=== PATIENT | female | born 1940 | race Caucasian/White ===

== ENCOUNTER 2018-02-16 04:14 | Emergency (ER) | payer MEDICARE, OTHER ==
[2018-02-16 04:36] VITALS: BP 170/72
--- NOTE | 2018-02-16 04:58 | EDM.PDOC ---
ED HPI GENERAL MEDICAL PROBLEM - General Chief Complaint: Lower Extremity Injury/Pain Stated Complaint: PAIN IN RIGHT LEG Time Seen by Provider: 02/16/18 04:56 Source of Information: Reports: Patient History Limitations: Reports: No Limitations - History of Present Illness INITIAL COMMENTS - FREE TEXT/NARRATIVE: This lady is here because she is a diabetic and her this morning she started having some shooting burning pain in the lateral side of right calf she called one of the nurses help lines and the nurse there told her that she better get to the emergency room right away because she might have a blood clot. Patient says his pain comes and goes when it comes it's sharp stabbing and goes away just as fast she does have peripheral neuropathy from diabetes - Related Data Allergies Allergy/AdvReac Type Severity Reaction Status Date / Time amoxicillin [Amoxicillin] Allergy Hives Verified 02/16/18 04:31 Home Meds: Home Meds Levothyroxine Sodium [Synthroid] 100 mcg PO ACBREAKFAST 02/01/15 [History] Lisinopril [Prinivil] 10 mg PO DAILY 02/01/15 [History] Simvastatin [Zocor] 40 mg PO BEDTIME 02/01/15 [History] metFORMIN [Glucophage] 500 mg PO BID 02/01/15 [History] Past Medical History Cardiovascular History: Reports: High Cholesterol, Hypertension 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: , 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 Musculoskeletal History: Reports: Arthritis, Fibromyalgia Neurological History: Reports: Neuropathy, Diabetic Endocrine/Metabolic History: Reports: Diabetes, Type II, Hypothyroidism, Vitamin D Deficiency - Past Surgical History HEENT Surgical History: Reports: Other (See Below) Other HEENT Surgeries/Procedures: nasal surgery GI Surgical History: Reports: Appendectomy, Cholecystectomy Musculoskeletal Surgical History: Reports: Shoulder Surgery Social & Family History - Tobacco Use Smoking Status *Q: Never Smoker Second Hand Smoke Exposure: No - Caffeine Use Caffeine Use: Reports: Coffee - Alcohol Use Days Per Week of Alcohol Use: 0 - Recreational Drug Use Recreational Drug Use: No Review of Systems - Review of Systems Review Of Systems: ROS reveals no pertinent complaints other than HPI. ED EXAM, GENERAL - Physical Exam Exam: See Below Exam Limited By: No Limitations General Appearance: Alert, WD/WN, No Apparent Distress Extremities: Other (The right calf is completely normal area there is no swelling erythema there is no mass no rashes and is completely nontender.) Neurological: Alert, Oriented, Other (Some decreased sensation in the lower legs and feet) Skin Exam: Warm, Dry, Intact Course - Vital Signs Last Recorded V/S: Last Vital Signs Temp 35.4 C 02/16/18 04:35 Pulse 55 L 02/16/18 04:35 Resp 18 02/16/18 04:35 BP 170/72 H 02/16/18 04:35 Pulse Ox 96 02/16/18 04:35 Departure - Departure Time of Disposition: 04:56 Disposition: Home, Self-Care 01 Condition: Fair Clinical Impression: Peripheral neuropathy due to metabolic disorder - Discharge Information Instructions: Peripheral Neuropathy Referrals: Camille Be MD [Primary Care Provider] - Forms: ED Department Discharge Additional Instructions: The shooting stabbing pains in your legs are typical of the peripheral neuropathy that is common in people with diabetes. Definitely you do not have a blood clot.
== END 2018-02-16 05:00 | disposition home or self-care (01) ==
LOC: JP.ED 04:14
DX: E11.42 Type 2 diabetes mellitus with diabetic polyneuropathy (principal); E88.9 Metabolic disorder, unspecified; E78.00 Pure hypercholesterolemia, unspecified; E03.9 Hypothyroidism, unspecified; Z88.1 Allergy status to other antibiotic agents; Z79.899 Other long term (current) drug therapy; Z79.84 Long term (current) use of oral hypoglycemic drugs
CPT/HCPCS: 99283

== ENCOUNTER 2020-05-13 15:43 | Emergency (ER) | payer MEDICARE, OTHER ==
[2020-05-13] MEDS ORDERED: Aspirin 81 MG Tab.Chew PO ONE (15:51)
[2020-05-13] MEDS ORDERED: Sodium Chloride 0.9% 10 ML Syringe FLUSH PRN (15:51)
--- NOTE | 2020-05-13 16:06 | EDM.PDOC ---
ED HPI GENERAL MEDICAL PROBLEM - General Chief Complaint: Chest Pain Stated Complaint: CHEST PAIN Time Seen by Provider: 05/13/20 16:00 Source of Information: Reports: Patient, Family - History of Present Illness INITIAL COMMENTS - FREE TEXT/NARRATIVE: 79 year old female presents to [facility] for chest pressure which patient has had intermittently since Friday. 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 Patient noted slight shortness of breath with chest pressure which does not radiate to left shoulder or jaw. Patient denies nausea, lightheadedness and sweating with chest pressure symptoms. Patient was evaluated by her PCP for the same symptoms on Friday which have occurred nearly every day with slight physical exertion. Patient believes she has angina and wondering if she would benefit from nitroglycerin as needed. Patient declined Nitroglycerin during ER visit, as symptoms only occur with activity. - Related Data Allergies Allergy/AdvReac Type Severity Reaction Status Date / Time amoxicillin [Amoxicillin] Allergy Hives Verified 05/13/20 15:44 Home Meds: Home Meds Levothyroxine Sodium [Synthroid] 100 mcg PO ACBREAKFAST 02/01/15 [History] Simvastatin [Zocor] 40 mg PO BEDTIME 02/01/15 [History] lisinopriL [Prinivil] 2.5 mg PO DAILY 02/01/15 [History] metFORMIN [Glucophage] 500 mg PO BID 02/01/15 [History] Aspirin [Adult Low Dose Aspirin EC] 81 mg PO DAILY 05/10/20 [History] Cholecalciferol (Vitamin D3) [Vitamin D3] 25 mcg PO DAILY 05/10/20 [History] Gabapentin [Neurontin] 300 mg PO BEDTIME 05/10/20 [History] Multivitamin [Multivitamins] 1 tab PO DAILY 05/10/20 [History] Isosorbide Mononitrate [Imdur] 30 mg PO DAILY 30 Days #30 tab.er 05/13/20 [Rx] Past Medical History Cardiovascular History: Reports: High Cholesterol, Hypertension 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: , 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 Musculoskeletal History: Reports: Arthritis, Fibromyalgia Neurological History: Reports: Neuropathy, Diabetic Endocrine/Metabolic History: Reports: Diabetes, Type II, Hypothyroidism, Vitamin D Deficiency - Past Surgical History HEENT Surgical History: Reports: Other (See Below) Other HEENT Surgeries/Procedures: nasal surgery GI Surgical History: Reports: Appendectomy, Cholecystectomy Musculoskeletal Surgical History: Reports: Shoulder Surgery Social & Family History - Tobacco Use Smoking Status *Q: Never Smoker - Caffeine Use Caffeine Use: Reports: Coffee ED ROS GENERAL - Review of Systems Review Of Systems: Comprehensive ROS is negative, except as noted in HPI. ED EXAM, GENERAL - Physical Exam Exam: See Below Exam Limited By: No Limitations General Appearance: Alert, WD/WN, No Apparent Distress Ears: Normal External Exam, Hearing Grossly Normal Nose: Normal Inspection Throat/Mouth: Normal Inspection, Normal Voice, No Airway Compromise Neck: Normal Inspection, Full Range of Motion Respiratory/Chest: No Respiratory Distress, Lungs Clear, Normal Breath Sounds, Chest Non-Tender Cardiovascular: Regular Rate, Rhythm, Systolic Murmur (soft questionable) GI/Abdominal: Normal Bowel Sounds, Soft, Tender (diffuse not focal which is normal per patient) (Female) Exam: Deferred Rectal (Female) Exam: Deferred Back Exam: No: CVA Tenderness (R), CVA Tenderness (L) Neurological: Alert, Oriented Psychiatric: Normal Affect, Normal Mood Skin Exam: Warm, Dry, Intact, Normal Color, No Rash EKG INTERPRETATION EKG Date: 05/13/20 Time: 15:39 Rhythm: NSR [place]: Normal P-Wave: Present QRS: RBBB ST-T: Other (non specific) QT: Prolonged (476 QTc 484) Comparison: No Change (from 2014) Course - Vital Signs Last Recorded V/S: Last Vital Signs Temp 36.2 C 05/13/20 15:49 Pulse 50 L 05/13/20 17:24 Resp 17 05/13/20 17:24 BP 159/72 H 05/13/20 17:24 Pulse Ox 98 05/13/20 17:24 - Orders/Labs/Meds Orders: Active Orders 24 hr Category Date Time Status Cardiac Monitoring [RC] .As Directed Care 05/13/20 15:51 Active EKG Documentation Completion [RC] ASDIRECTED Care 05/13/20 15:52 Active Peripheral IV Care [RC] . DIRECTED Care 05/13/20 15:52 Active Chest 1V Frontal [CR] Stat Exams 05/13/20 15:52 Taken Nitroglycerin [Nitrostat] Med 05/13/20 16:17 Active 0.4 mg SL Q5M PRN Sodium Chloride 0.9% [Saline Flush] Med 05/13/20 15:51 Active 10 ml FLUSH ASDIRECTED PRN Peripheral IV Insertion Adult [OM.PC] Stat Oth 05/13/20 15:51 Ordered EKG 12 Lead [EK] Stat Ther 05/13/20 15:52 Ordered Medication Orders Nitroglycerin (Nitrostat) 0.4 mg SL Q5M PRN PRN Reason: Chest Pain Sodium Chloride (Saline Flush) 10 ml FLUSH ASDIRECTED PRN PRN Reason: Keep Vein Open Last Admin: 05/13/20 16:03 Dose: 10 ml Documented by: AILEEN Labs: Laboratory Tests 05/13/20 05/13/20 Range/Units 15:56 15:56 WBC 5.2 (4.5-11.0) K/uL RBC 4.21 (3.30-5.50) M/uL Hgb 12.1 (12.0-15.0) g/dL Hct 37.8 (36.0-48.0) % MCV 90 (80-98) fL MCH 29 (27-31) pg MCHC 32 (32-36) % Plt Count 284 (150-400) K/uL Neut % (Auto) 57 (36-66) % Lymph % (Auto) 32 (24-44) % [place] % (Auto) 9 H (2-6) % Eos % (Auto) 1 L (2-4) % Baso % (Auto) 0 (0-1) % Sodium 138 L (140-148) mmol/L Potassium 3.7 (3.6-5.2) mmol/L Chloride 102 (100-108) mmol/L Carbon Dioxide 26 (21-32) mmol/L Anion Gap 13.7 (5.0-14.0) mmol/L BUN 18 (7-18) mg/dL Creatinine 1.0 (0.6-1.0) mg/dL Est Cr Clr Drug Dosing 42.39 mL/min Estimated GFR (MDRD) 54 L (>60) Glucose 204 H (74-106) mg/dL Calcium 8.5 (8.5-10.1) mg/dL Total Bilirubin 0.2 (0.2-1.0) mg/dL AST 17 (15-37) U/L ALT 23 (12-78) U/L Alkaline Phosphatase 65 (46-116) U/L Troponin I < 0.017 (0.000-0.056) ng/mL Total Protein 6.7 (6.4-8.2) g/dL Albumin 3.8 (3.4-5.0) g/dL Globulin 2.9 (2.3-3.5) g/dL Albumin/Globulin Ratio 1.3 (1.2-2.2) Meds: Medications Generic Name Dose Route Start Last Admin Trade Name Freq PRN Reason Stop Dose Admin Nitroglycerin 0.4 mg 05/13/20 16:17 Nitrostat SL Q5M PRN Chest Pain Sodium Chloride 10 ml 05/13/20 15:51 05/13/20 16:03 Saline Flush FLUSH 10 ml ASDIRECTED PRN Administration Keep Vein Open Discontinued Medications Generic Name Dose Route Start Last Admin Trade Name Freq PRN Reason Stop Dose Admin Aspirin 324 mg 05/13/20 15:51 05/13/20 16:12 Aspirin PO 05/13/20 15:52 324 mg ONETIME ONE Administration - Radiology Interpretation Free Text/Narrative:: CXR PA: NO acute cardiopulmonary findings. Images read by me during ER visit. Radiology report pending. - Re-Assessments/Exams Free Text/Narrative Re-Assessment/Exam: Chart review completed during ER visit: Patient had a out patient Cardiac Stress Test with Lexiscan, Impression: Unre markable Lexiscan portion of the Lexiscan Myoview study. Interpretation of the Myoview portion of the study is pending at this time. Patient has similar symptoms in 2014 which results in Cardiac Angiography which the patient believes was normal, study was competed in [facility]. Myocardial Perfusion Scan Report available during patient ER visit: IMPRESSION: 1. No evidence of significant myocardia ischemia or infarction. 2. Normal left ventricular ejection fraction of 76 percent. Reassessment: EKG and Troponin are normal with history of normal Lexiscan and Myocardial Perfusion Scan this week decreases likelihood for significant cardiac cause to explain patient's symptoms. Patient was offered Nitro SL but declined as symptoms only occur with activity. No pain during ER visit. Remainder of blood test do not show obvious cause for patient's symptoms of chest pain today. CXR shows not signs of pulmonary concerns to explain symptoms. 05/13/20 17:27 Departure - Departure Time of Disposition: 17:42 Disposition: Home, Self-Care 01 Clinical Impression: Angina of effort Prescriptions: Isosorbide Mononitrate [Imdur] 30 mg PO DAILY 30 Days #30 tab.er Instructions: Nonspecific Chest Pain, Adult, [id number], Angina Referrals: PCP,None [Primary Care Provider] - Forms: ED Department Discharge Additional Instructions: 1. Imdur 30mg once daily for prevention of stable angina. 2. Stable angina is chest pressure with activity which resolves at rest, which should decrease or stop with this medication. 3. If however, you have chest pressure and pain that worsens or does not improve at rest repeat ER evaluation would be recommended. 4. Call you PCP about ER visit and plan to initiate Imdur for the prevention of your angina which is preventing you for enjoying the activities of daily living. Sepsis Event Note (ED) - Evaluation Sepsis Screening Result: No Definite Risk - Focused Exam Vital Signs: Vital Signs Temp Pulse Resp BP Pulse Ox 05/13/20 17:24 50 L 17 159/72 H 98 05/13/20 17:10 52 L 165/71 H 05/13/20 16:31 54 L 17 149/69 H 97 05/13/20 16:02 53 L 13 157/66 H 99 05/13/20 15:49 36.2 C 58 L 18 168/69 H 96 - My Orders Last 24 Hours: My Active Orders 05/13/20 15:51 Cardiac Monitoring [RC] .As Directed Sodium Chloride 0.9% [Saline Flush] 10 ml FLUSH ASDIRECTED PRN Peripheral IV Insertion Adult [OM.PC] Stat 05/13/20 15:52 EKG Documentation Completion [RC] ASDIRECTED Peripheral IV Care [RC] . DIRECTED Chest 1V Frontal [CR] Stat EKG 12 Lead [EK] Stat 05/13/20 16:17 Nitroglycerin [Nitrostat] 0.4 mg SL Q5M PRN - Assessment/Plan Last 24 Hours: My Active Orders 05/13/20 15:51 Cardiac Monitoring [RC] .As Directed Sodium Chloride 0.9% [Saline Flush] 10 ml FLUSH ASDIRECTED PRN Peripheral IV Insertion Adult [OM.PC] Stat 05/13/20 15:52 EKG Documentation Completion [RC] ASDIRECTED Peripheral IV Care [RC] . DIRECTED Chest 1V Frontal [CR] Stat EKG 12 Lead [EK] Stat 05/13/20 16:17 Nitroglycerin [Nitrostat] 0.4 mg SL Q5M PRN
[2020-05-13] MEDS ORDERED: Nitroglycerin 0.4 MG Tab.SL SL PRN (16:17)
[2020-05-13 17:25] VITALS: BP 159/72; PULSE 50
--- NOTE | 2020-05-15 10:32 | CR ---
CHEST: Portable 05/13/2020 at 4:13 PM CLINICAL HISTORY:Chest pain COMPARISON:2014 FINDINGS: The heart size, pulmonary vascularity and hilar structures are normal. No infiltrate effusion or pneumothorax is seen. There are atherosclerotic changes in the aorta. There is severe degenerative change left shoulder IMPRESSION: No acute cardiopulmonary process.
== END 2020-05-13 17:56 | disposition home or self-care (01) ==
LOC: JP.ED 15:43
DX: I20.8 Other forms of angina pectoris (principal); E78.00 Pure hypercholesterolemia, unspecified; I10 Essential (primary) hypertension; E11.40 Type 2 diabetes mellitus with diabetic neuropathy, unspecified; E03.9 Hypothyroidism, unspecified; Z88.0 Allergy status to penicillin; Z79.899 Other long term (current) drug therapy; Z79.84 Long term (current) use of oral hypoglycemic drugs; Z79.82 Long term (current) use of aspirin
CPT/HCPCS: 36415; 71045; 80053; 84484; 85025; 93005; 99285; A9270

== ENCOUNTER 2020-07-14 22:29 | Emergency (ER) | payer MEDICARE, OTHER ==
[2020-07-14 22:38] VITALS: BP 131/87; PULSE 54
--- NOTE | 2020-07-14 23:46 | EDM.PDOC ---
ED HPI GENERAL MEDICAL PROBLEM - General Chief Complaint: Chest Pain Stated Complaint: CHEST TIGHTNESS Time Seen by Provider: 07/14/20 22:55 Source of Information: Reports: Patient, Family History Limitations: Reports: No Limitations - History of Present Illness INITIAL COMMENTS - FREE TEXT/NARRATIVE: Patient presents tonight describing vague chest tightness feelings beginning approximately 2100 hrs. She has been diagnosed with angina and takes isosorbide on a daily basis. She underwent a Radha scan stress test, echocardiogram, ambulatory telemetry monitoring and cardiology follow-up, most recently with Dr. Burgos on Friday here in [place]. He said that all tests looked good and recommended that she continue isosorbide for maintenance of her angina symptoms. 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 She had absolutely no chest tightness, heaviness, shortness of breath, dizziness during any of that work. She carried a number of boxes of potatoes down to their basement after digging them out of the ground and similarly had no difficulty with secondary symptoms. Later while preparing a meal and then taking it easy, she noticed tightness in her neck, left shoulder, chest and felt as though she could not catch her breath. She does have anxiety and contemplated taking 1 of her anxiety medications but instead decided that she needed to come in and be seen here. Her symptoms were essentially gone when she arrived. She noticed extra heartbeats and was concerned that that represented some type of heart attack. She had no nausea, no diaphoresis. At this time, she feels like her usual self. Onset: Today Duration: Hour(s): (1) Location: Reports: Neck, Chest Quality: Reports: Other (Fluttering in chest.) Severity: Mild Improves with: Reports: None Worsens with: Reports: None Associated Symptoms: Reports: Shortness of Breath Chest Pain Score (Numeric/FACES): 6 - Related Data Allergies Allergy/AdvReac Type Severity Reaction Status Date / Time amoxicillin [Amoxicillin] Allergy Hives Verified 07/14/20 22:36 Home Meds: Home Meds Levothyroxine Sodium [Synthroid] 100 mcg PO ACBREAKFAST 02/01/15 [History] Simvastatin [Zocor] 40 mg PO BEDTIME 02/01/15 [History] lisinopriL [Prinivil] 2.5 mg PO DAILY 02/01/15 [History] metFORMIN [Glucophage] 500 mg PO BID 02/01/15 [History] Aspirin [Adult Low Dose Aspirin EC] 81 mg PO DAILY 05/10/20 [History] Cholecalciferol (Vitamin D3) [Vitamin D3] 25 mcg PO DAILY 05/10/20 [History] Multivitamin [Multivitamins] 1 tab PO DAILY 05/10/20 [History] Isosorbide Mononitrate [Imdur] 30 mg PO DAILY 30 Days #30 tab.er 05/13/20 [Rx] Past Medical History HEENT History: Reports: Cataract, Glaucoma, Impaired Vision, Other (See Below) Other HEENT History: 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 Cardiovascular History: Reports: Angina, Heart Murmur, High Cholesterol, Hypertension Genitourinary History: Reports: Other (See Below) Other Genitourinary History: prolapsed bladder 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: , 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 Musculoskeletal History: Reports: Arthritis, Fracture, Fibromyalgia Neurological History: Reports: Neuropathy, Diabetic Psychiatric History: Reports: Anxiety Endocrine/Metabolic History: Reports: Diabetes, Type II, Hypothyroidism, Vitamin D Deficiency Dermatologic History: Reports: Other (See Below) Other Dermatologic History: lichen sclerosis et atoprotis - Infectious Disease History Infectious Disease History: Reports: Chicken Pox - Past Surgical History HEENT Surgical History: Reports: Other (See Below) Other HEENT Surgeries/Procedures: nasal surgery GI Surgical History: Reports: Appendectomy, Cholecystectomy, Colonoscopy Musculoskeletal Surgical History: Reports: Shoulder Surgery Social & Family History - Tobacco Use Smoking Status *Q: Never Smoker - Caffeine Use Caffeine Use: Reports: Coffee ED ROS GENERAL - Review of Systems Review Of Systems: See Below Constitutional: Reports: Fatigue (She is tired but also worked many hours today doing heavy manual labor.) HEENT: Reports: No Symptoms Respiratory: Reports: Shortness of Breath (It is difficult for her to quantify her shortness of breath feelings. She does not have a history of reactive airway disease.) Cardiovascular: Reports: Chest Pain, Palpitations Endocrine: Reports: No Symptoms GI/Abdominal: Reports: No Symptoms Musculoskeletal: Reports: Neck Pain, Shoulder Pain (Left shoulder) Neurological: Reports: No Symptoms ED EXAM, GENERAL - Physical Exam Exam: See Below Free Text/Narrative:: This is an adult female interviewed in room 3. She is accompanied by her . 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 Exam Limited By: No Limitations General Appearance: No Apparent Distress, Anxious Head: Atraumatic Neck: Supple Respiratory/Chest: No Respiratory Distress, Lungs Clear Cardiovascular: Regular Rate, Rhythm, Extra Beats (Rare occurrences) Peripheral Pulses: 4+: Carotid (L), Carotid (R) GI/Abdominal: Soft, Non-Tender Psychiatric: Anxious EKG INTERPRETATION EKG Date: 07/14/20 Time: 22:42 Rhythm: NSR Rate (Beats/Min): 55 [place]: Normal P-Wave: Present QRS: RBBB ST-T: Normal QT: Normal Course - Vital Signs Last Recorded V/S: Last Vital Signs Temp 35.9 C L 07/14/20 22:50 Pulse 54 L 07/14/20 22:50 Resp 10 L 07/14/20 22:50 BP 131/87 07/14/20 22:50 Pulse Ox 100 07/14/20 22:50 - Orders/Labs/Meds Orders: Active Orders 24 hr Category Date Time Status EKG Documentation Completion [RC] ASDIRECTED Care 07/14/20 23:48 Ordered EKG 12 Lead [EK] Routine Ther 07/14/20 23:48 Ordered - Re-Assessments/Exams Free Text/Narrative Re-Assessment/Exam: 07/15/20 00:00 We reviewed her recent extensive cardiac work-up and its results. At this time, she feels fine and thinks that the episode tonight was more anxiety. Both her and daughter were diagnosed with cancer 2 months ago and that has been on her mind as well. It told her that I felt all of her outside work today was in essence a personal self conducted cardiac stress test. She had no palpitations, chest pain, breathing difficulty while doing those things. It was only later when she had time to rest and contemplate symptoms that she works. The way she describes her breathing, I think she was not exhaling completely and yet it felt as though she could not take a breath in. We discussed that there is no sudden onset way that would keep her from being able to breathe in. Her EKG looks fine and here she has no secondary symptoms. I recommend continuing her current medication and care plans. If she decides to take her anxiety medication she should remember that it will take 30 minutes or so to be completely effective. If she feels as though she cannot breathe, she should make sure she exhales completely. If she has chest heaviness suggestive of anginal, she should return here or to the nearest emergency department. Her symptoms tonight did not sound like angina. She was discharged in reassured condition. Departure - Departure Time of Disposition: 23:43 Disposition: Home, Self-Care 01 Clinical Impression: Palpitations, Atypical chest pain, Anxiety Instructions: Nonspecific Chest Pain, Adult, [id number], Palpitations, [id number], Living With Anxiety Referrals: PCP,None [Primary Care Provider] - Forms: ED Department Discharge Additional Instructions: Continue current medications including isosorbide and your anxiety medicine. The fact that you were able to work hard all day and not have chest discomfort is a positive sign. If you feel as though you are are not able to breathe properly, remember our discussion about breathing out completely before attempting to take of breath and again. It is normal for people to have extra heartbeats especially as we get older. If you notice those, it does not mean that something bad is about to happen. If you use your anxiety medication remember that it will take 30 minutes to begin to be effective. If feeling worse in any way, return to ER. Sepsis Event Note (ED) - Evaluation Sepsis Screening Result: No Definite Risk - Focused Exam Vital Signs: Vital Signs Temp Pulse Resp BP Pulse Ox 07/14/20 22:50 35.9 C L 54 L 10 L 131/87 100 07/14/20 22:37 35.9 C L 54 L 10 L 131/87 100 - My Orders Last 24 Hours: My Active Orders 07/14/20 23:48 EKG Documentation Completion [RC] ASDIRECTED EKG 12 Lead [EK] Routine - Assessment/Plan Last 24 Hours: My Active Orders 07/14/20 23:48 EKG Documentation Completion [RC] ASDIRECTED EKG 12 Lead [EK] Routine
== END 2020-07-14 23:54 | disposition home or self-care (01) ==
LOC: JP.ED 22:29
DX: R07.89 Other chest pain (principal); F41.9 Anxiety disorder, unspecified; I10 Essential (primary) hypertension; M19.90 Unspecified osteoarthritis, unspecified site; E11.40 Type 2 diabetes mellitus with diabetic neuropathy, unspecified; I45.10 Unspecified right bundle-branch block; Z88.1 Allergy status to other antibiotic agents; Z79.82 Long term (current) use of aspirin; Z79.899 Other long term (current) drug therapy; Z79.84 Long term (current) use of oral hypoglycemic drugs
CPT/HCPCS: 93005; 93010; 99284-25

== ENCOUNTER 2021-02-11 19:08 | Emergency (ER) | payer MEDICARE, OTHER ==
[2021-02-11 19:22] VITALS: PULSE 57
--- NOTE | 2021-02-11 19:26 | EDM.PDOC ---
ED HPI GENERAL MEDICAL PROBLEM - General Chief Complaint: Respiratory Problem Stated Complaint: DIFFICULTY BREATHING Time Seen by Provider: 02/11/21 19:21 Source of Information: Reports: Patient History Limitations: Reports: No Limitations - History of Present Illness INITIAL COMMENTS - FREE TEXT/NARRATIVE: Winnie is a 80-year-old female presenting to the ED for evaluation of o rthopnea. Patient was in her usual state of health until eating hazelnuts last evening. She thinks that she may have aspirated 1 and since then has had the sensation of either having a scratch in her trachea or a retained foreign body. She states that she becomes increasingly short of breath when reclining and was unable to sleep last night because of the discomfort and shortness of breath. She denies any fever or chills. She has had nasal congestion and rhinorrhea for about the last week but has not taken anything for it. She has had a nonproductive cough since the incident last night. She denies any dyspnea at rest. - Related Data Allergies Allergy/AdvReac Type Severity Reaction Status Date / Time amoxicillin [Amoxicillin] Allergy Hives Verified 02/11/21 19:17 Home Meds: Home Meds Levothyroxine Sodium [Synthroid] 100 mcg PO ACBREAKFAST 02/01/15 [History] Simvastatin [Zocor] 40 mg PO BEDTIME 02/01/15 [History] lisinopriL [Prinivil] 2.5 mg PO DAILY 02/01/15 [History] metFORMIN [Glucophage] 500 mg PO BID 02/01/15 [History] Aspirin [Adult Low Dose Aspirin EC] 81 mg PO DAILY 05/10/20 [History] Cholecalciferol (Vitamin D3) [Vitamin D3] 1,000 mcg PO DAILY 05/10/20 [History] Multivitamin [Multivitamins] 1 tab PO DAILY 05/10/20 [History] Isosorbide Mononitrate [Imdur] 30 mg PO DAILY 30 Days #30 tab.er 05/13/20 [Rx] Past Medical History HEENT History: Reports: Cataract, Glaucoma, Impaired Vision, Other (See Below) Other HEENT History: 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 Cardiovascular History: Reports: Angina, Heart Murmur, High Cholesterol, Hypertension Genitourinary History: Reports: Other (See Below) Other Genitourinary History: prolapsed bladder OFFICE SUPPORT ASSISTANT History: Reports: , Spontaneous Musculoskeletal History: Reports: Arthritis, Fracture, Fibromyalgia Neurological History: Reports: Neuropathy, Diabetic Psychiatric History: Reports: Anxiety Endocrine/Metabolic History: Reports: Diabetes, Type II, Hypothyroidism, Vitamin D Deficiency Dermatologic History: Reports: Other (See Below) Other Dermatologic History: lichen sclerosis et atoprotis - Infectious Disease History Infectious Disease History: Reports: Chicken Pox - Past Surgical History HEENT Surgical History: Reports: Other (See Below) Other HEENT Surgeries/Procedures: nasal surgery GI Surgical History: Reports: Appendectomy, Cholecystectomy, Colonoscopy Musculoskeletal Surgical History: Reports: Shoulder Surgery Social & Family History - Tobacco Use Tobacco Use Status *Q: Never Tobacco User - Caffeine Use Caffeine Use: Reports: Coffee - Recreational Drug Use Recreational Drug Use: No ED ROS GENERAL - Review of Systems Review Of Systems: See Below Constitutional: Reports: No Symptoms HEENT: Reports: Rhinitis Respiratory: Reports: Shortness of Breath, Cough, Other (Orthopnea) Cardiovascular: Reports: Orthopnea Endocrine: Reports: No Symptoms GI/Abdominal: Reports: No Symptoms : Reports: No Symptoms Musculoskeletal: Reports: No Symptoms Skin: Reports: No Symptoms Neurological: Reports: No Symptoms Psychiatric: Reports: No Symptoms Hematologic/Lymphatic: Reports: No Symptoms Immunologic: Reports: No Symptoms ED EXAM, GENERAL - Physical Exam Exam: See Below Exam Limited By: No Limitations General Appearance: Alert, No Apparent Distress Eye Exam: Bilateral Eye: EOMI, PERRL Nose: Nasal Swelling, Nasal Drainage, Clear Rhinorrhea Throat/Mouth: Normal Inspection, Normal Lips, Normal Teeth, Normal Gums, Normal Oropharynx, Normal Voice, No Airway Compromise Head: Atraumatic, Normocephalic Neck: Normal Inspection, Supple, Non-Tender, Full Range of Motion Respiratory/Chest: No Respiratory Distress, Lungs Clear, Normal Breath Sounds. No: Rales, Rhonchi, Wheezing, Stridor Cardiovascular: Normal Peripheral Pulses, Regular Rate, Rhythm, No Murmur Peripheral Pulses: 2+: Radial (L), Radial (R) GI/Abdominal: Normal Bowel Sounds, Soft, Non-Tender Back Exam: Normal Inspection, Full Range of Motion Extremities: Normal Inspection, Normal Range of Motion, No Pedal Edema Neurological: Alert, Oriented, Normal Cognition, No Motor/Sensory Deficits Psychiatric: Normal Affect, Normal Mood Skin Exam: Warm, Dry, Intact, Normal Color Lymphatic: No Adenopathy Course - Vital Signs Last Recorded V/S: Last Vital Signs Temp 36.8 C 02/11/21 19:21 Pulse 57 L 02/11/21 19:21 Resp 18 02/11/21 19:21 BP 171/66 H 02/11/21 19:47 Pulse Ox 97 02/11/21 19:21 - Orders/Labs/Meds Orders: Active Orders 24 hr Category Date Time Status RT Aerosol Therapy [RC] ASDIRECTED Care 02/11/21 20:27 Active Labs: Laboratory Tests 02/11/21 02/11/21 02/11/21 Range/Units 19:33 19:33 19:33 WBC 5.5 (4.5-11.0) K/uL RBC 4.18 (3.30-5.50) M/uL Hgb 12.1 (12.0-15.0) g/dL Hct 37.5 (36.0-48.0) % MCV 90 (80-98) fL MCH 29 (27-31) pg MCHC 32 (32-36) % Plt Count 258 (150-400) K/uL Neut % (Auto) 58 (36-66) % Lymph % (Auto) 28 (24-44) % Cook % (Auto) 12 H (2-6) % Eos % (Auto) 2 (2-4) % Baso % (Auto) 0 (0-1) % Sodium 144 (140-148) mmol/L Potassium 4.1 (3.6-5.2) mmol/L Chloride 105 (100-108) mmol/L Carbon Dioxide 28 (21-32) mmol/L Anion Gap 10.6 (5.0-14.0) mmol/L BUN 19 H (7-18) mg/dL Creatinine 1.1 H (0.6-1.0) mg/dL Est Cr Clr Drug Dosing 37.93 mL/min Estimated GFR (MDRD) 48 L (>60) Glucose 162 H (74-106) mg/dL Calcium 9.3 (8.5-10.1) mg/dL Total Bilirubin 0.2 (0.2-1.0) mg/dL AST 15 (15-37) U/L ALT 20 (12-78) U/L Alkaline Phosphatase 86 (46-116) U/L C-Reactive Protein 0.21 (0.0-0.3) mg/dL NT-Pro-B Natriuret Pep 287 (5-450) pg/mL Total Protein 6.6 (6.4-8.2) g/dL Albumin 3.7 (3.4-5.0) g/dL Globulin 2.9 (2.3-3.5) g/dL Albumin/Globulin Ratio 1.3 (1.2-2.2) Meds: Medications Discontinued Medications Generic Name Dose Route Start Last Admin Trade Name Freq PRN Reason Stop Dose Admin Albuterol/Ipratropium 3 ml 02/11/21 20:27 02/11/21 20:31 Albuterol/Ipratropium 3.0-0.5 Mg/3 Ml Neb Soln NEB 02/11/21 20:28 3 ml ONETIME ONE Administration - Radiology Interpretation Free Text/Narrative:: I reviewed the report on the CT of the chest without contrast. There is no evidence for any endotracheal or endobronchial foreign bodies. There is coronary artery disease and mitral annular calcification noted but otherwise no abnormalities were otherwise discussed. - Re-Assessments/Exams Free Text/Narrative Re-Assessment/Exam: 02/11/21 20:25 reviewed the labs from the patient which are essentially normal. Her BNP is 278. Her CBC and comprehensive metabolic panel are unremarkable. Her CRP is normal. The CT of the chest without contrast failed to demonstrate any acute foreign bodies. We will try a bronchodilator to see if this helps with her orthopnea. This is likely some subjective irritation of the proximal trachea due to the near aspiration. Departure - Departure Time of Disposition: 20:43 Disposition: Home, Self-Care 01 Clinical Impression: Orthopnea, Bronchospasm, Allergic rhinitis due to allergen - Discharge Information Instructions: Bronchospasm, Adult, [id number], Allergic Rhinitis, Adult, [id number] Referrals: Kelly Askew PA-C [Primary Care Provider] - Forms: ED Department Discharge Care Plan Goals: It is likely that your difficulty breathing with lying down is secondary to your seasonal allergies and some bronchospasm due to tracheal irritation. There was no evidence for aspiration of any of the not that she consumed yesterday. Moreover, chronic irritation of the upper airway from postnasal drip may be contributing more to your difficulty breathing with lying down. I would recommend starting one of the [id number] allergy medicines like Claritin, Rosalie, or Zyrtec to help alleviate the postnasal drip. You may also consider using Flonase which is also available [id number] to help reduce the inflammation in the nose. This is likely due to the recent onset of spring with the cruz of [place] tree pollen. I am sending you home with an inhaler of albuterol which will help relax airways and may offer some relief for your difficulty breathing. Follow-up with your primary care provider as needed. Return to the ED should you develop any significant shortness of breath. Sepsis Event Note (ED) - Evaluation Sepsis Screening Result: No Definite Risk - Focused Exam Vital Signs: Vital Signs Temp Pulse Resp BP Pulse Ox 02/11/21 19:47 171/66 H 02/11/21 19:21 36.8 C 57 L 18 182/82 H 97 - Problem List & Annotations (1) Allergic rhinitis due to allergen SNOMED Code(s): 83670927 Code(s): J30.9 - ALLERGIC RHINITIS, UNSPECIFIED Status: Acute Priority: High Current Visit: Yes Qualifiers: Allergic rhinitis trigger: pollen Allergic rhinitis seasonality: seasonal Qualified Code(s): J30.1 - Allergic rhinitis due to pollen (2) Bronchospasm SNOMED Code(s): 2963363 Code(s): J98.01 - ACUTE BRONCHOSPASM Status: Acute Priority: High Current Visit: Yes (3) Orthopnea SNOMED Code(s): 31374046 Code(s): R06.01 - ORTHOPNEA Status: Acute Priority: High Current Visit: Yes - Problem List Review Problem List Initiated/Reviewed/Updated: Yes - My Orders Last 24 Hours: My Active Orders 02/11/21 20:27 RT Aerosol Therapy [RC] ASDIRECTED - Assessment/Plan Last 24 Hours: My Active Orders 02/11/21 20:27 RT Aerosol Therapy [RC] ASDIRECTED
[2021-02-11 19:47] VITALS: BP 171/66
--- NOTE | 2021-02-11 20:21 | CRLCT ---
INDICATION: Possible inhaled foreign body, dyspnea TECHNIQUE: CT chest without contrast. COMPARISON: None. FINDINGS: Cardiovascular structures: Heart size is normal. Coronary artery calcifications. Mitral annular calcifications. Thoracic aorta and main pulmonary artery are normal in caliber. Mediastinum and simone: No sign of mass or adenopathy. Lungs: Clear. No endobronchial foreign body identified. Pleura and pericardium: No effusions. Chest wall and axilla: No mass or adenopathy. Upper abdomen: Unremarkable. Bones: Severe degenerative changes in the left glenohumeral joint. IMPRESSION: No endobronchial foreign body identified. Coronary artery disease. Please note that all CT scans at this facility use dose modulation, iterative reconstruction, and/or weight-based dosing when appropriate to reduce radiation dose to as low as reasonably achievable. Dictated by Joelle Slater MD @ Feb 11 2021 8:12PM Signed by Dr. Joelle Slater @ Feb 11 2021 8:19PM
[2021-02-11] MEDS ORDERED: Albuterol/Ipratropium 3.0-0.5 MG/3 ML Neb Soln NEB ONE (20:27)
== END 2021-02-11 20:57 | disposition home or self-care (01) ==
LOC: JP.ED 19:08
DX: J30.1 Allergic rhinitis due to pollen (principal); J98.01 Acute bronchospasm; E11.40 Type 2 diabetes mellitus with diabetic neuropathy, unspecified; I10 Essential (primary) hypertension; E03.9 Hypothyroidism, unspecified; E78.00 Pure hypercholesterolemia, unspecified; Z79.82 Long term (current) use of aspirin; Z79.899 Other long term (current) drug therapy; Z79.84 Long term (current) use of oral hypoglycemic drugs; Z88.0 Allergy status to penicillin
CPT/HCPCS: 36415; 71250; 80053; 83880; 85025; 86140; 94640; 99285-25; J7620-GY

== ENCOUNTER 2023-12-13 02:38 | Emergency (ER) | payer MEDICARE, OTHER | END 2023-12-13 02:55 | disposition left against medical advice (07) | LOC: JP.ED 02:38 | DX: Z53.21 Procedure and treatment not carried out due to patient leaving prior to being seen by health care provider (principal) ==

== ENCOUNTER 2024-05-31 23:55 | Emergency (ER) | payer MEDICARE, OTHER ==
[2024-06-01] MEDS: Acetaminophen 500 MG Tab PO ONE (01:09)
[2024-06-01 01:32] VITALS: BP 127/81; PULSE 60
== END 2024-06-01 01:25 | disposition home or self-care (01) ==
LOC: JP.ED 23:56
DX: M19.072 Primary osteoarthritis, left ankle and foot (principal); I10 Essential (primary) hypertension; E78.00 Pure hypercholesterolemia, unspecified; E11.9 Type 2 diabetes mellitus without complications; E03.9 Hypothyroidism, unspecified; Z86.16 Personal history of COVID-19; Z90.49 Acquired absence of other specified parts of digestive tract; Z79.899 Other long term (current) drug therapy; Z79.82 Long term (current) use of aspirin; Z79.84 Long term (current) use of oral hypoglycemic drugs; Z88.0 Allergy status to penicillin
CPT/HCPCS: 73610; 99283; A9270

== ENCOUNTER 2024-12-01 10:44 | Emergency (ER) | payer MEDICARE, OTHER ==
[2024-12-01 11:04] VITALS: BP 169/61; PULSE 57
[2024-12-01] MEDS ORDERED: Naloxone 0.4 MG/ML SDV IVPUSH PRN (11:37)
[2024-12-01] MEDS: HYDROmorphone 1 MG/ML Syringe IM ONE (11:43)
== END 2024-12-01 14:12 | disposition home or self-care (01) ==
LOC: JP.ED 10:44
DX: E11.42 Type 2 diabetes mellitus with diabetic polyneuropathy (principal); I10 Essential (primary) hypertension; E78.00 Pure hypercholesterolemia, unspecified; E03.9 Hypothyroidism, unspecified; Z86.16 Personal history of COVID-19; Z90.49 Acquired absence of other specified parts of digestive tract; Z88.0 Allergy status to penicillin; Z79.890 Hormone replacement therapy; Z79.84 Long term (current) use of oral hypoglycemic drugs; Z79.01 Long term (current) use of anticoagulants; Z79.52 Long term (current) use of systemic steroids; Z79.899 Other long term (current) drug therapy
CPT/HCPCS: 96372; 99283; J1171